=== PATIENT | female | born 1985 | race African-American/Black ===

== ENCOUNTER 2017-03-08 11:17 | Emergency (ER) | payer SELFPAY ==
[2017-03-08 11:24] VITALS: BP 152/81; PULSE 79; TEMP 98.3; BMI 38.0
--- NOTE | 2017-03-08 12:02 | PDOC ---
History of Present Illness - General Stated Complaint: TOOTHACHE Time Seen by Provider: 03/08/17 11:28 History Source: Patient Exam Limitations: No Limitations - History of Present Illness Initial Comments: 03/08/17 11:58 CHIEF COMPLAINT: Impacted left third she really lower molar HISTORY OF PRESENT ILLNESS: Patient is a 31-year-old female, denies any significant medical history currently on no medication presents for evaluation of impaction to left third posterior lower molar, patient reports piece of food getting stuck under the gumline causing pain. Unable to see dentist. Pain 10 out of 10, denies any foul taste, no fever, no difficulty swallowing, no respiratory difficulty. No Facial edema. 03/08/17 12:12 Timing/Duration: 24 hours Severity: moderate Associated Symptoms: reports: denies symptoms Past History - Past Medical History Allergies/Adverse Reactions: Allergies Allergy/AdvReac Type Severity Reaction Status Date / Time acetaminophen [From Tylenol] Allergy Rash Verified 03/08/17 11:25 ibuprofen [From Motrin] Allergy Rash Verified 03/08/17 11:25 shellfish derived Allergy Verified 03/08/17 11:24 Home Medications: Ambulatory Orders Oxycodone HCl/Acetaminophen [Percocet 5-325 mg Tablet] 1 - 2 tab PO Q4H #20 tablet MDD 10 03/08/17 Penicillin V Potassium [Pen Vee K -] 500 mg PO QID #40 tablet 03/08/17 COPD: No Other medical history: NONE - Surgical History Cholecystectomy: Yes - Immunization History Immunization Up to Date: No - Suicide/Smoking/Psychosocial Hx Smoking History: Current every day smoker Have you smoked in the past 12 months: No Number of Cigarettes Smoked Daily: 10 Information on smoking cessation initiated: No Hx Alcohol Use: Yes (SOCIAL) Drug/Substance Use Hx: No Substance Use Type: None Review of Systems - Review of Systems Constitutional: No: Symptoms Reported HEENTM: Yes: Mouth Pain, Other (impacted left third lower molar). No: Ear Pain , Ear Discharge, Nose Pain, Nose Congestion, Dental Problems, Difficulty Swallowing, Mouth Swelling Respiratory: No: Symptoms reported, Stridor, Wheezing, Productive cough Cardiac (ROS): No: Symptoms Reported ABD/GI: No: Symptoms Reported Integumentary: Yes: Other (no swelling). No: Symptoms Reported, Erythema Neurological: No: Symptoms reported, Paresthesia, Tingling, Tremors Hematologic/Lymphatic: No: Symptoms Reported All Other Systems: Reviewed and Negative *Physical Exam - Vital Signs Last Vital Signs Temp Pulse Resp BP Pulse Ox 98.3 F 79 18 152/81 99 03/08/17 11:20 03/08/17 11:20 03/08/17 11:20 03/08/17 11:20 03/08/17 11:20 - Physical Exam General Appearance: Yes: Appropriately Dressed. No: Apparent Distress HEENT: positive: JENNY, Normal ENT Inspection, Normal Voice, Symmetrical, TMs Normal, Pharynx Normal. negative: Nasal Congestion, Rhinorrhea, Sinus Tenderness, TM Bulging, TM Dull, TM Erythema Neck: positive: Trachea midline. negative: Tender, Lymphadenopathy (R), Lymphadenopathy (L), Tender lateral, Tender midline Respiratory/Chest: positive: Lungs Clear, Normal Breath Sounds. negative: Respiratory Distress, Accessory Muscle Use Cardiovascular: positive: Regular Rhythm, Regular Rate Lymphatic: negative: Adenopathy Integumentary: positive: Normal Color, Dry. negative: Erythema, Swelling, Ecchymosis, Bruising Neurologic: positive: Fully Oriented, Alert, Normal Mood/Affect, Motor Strength 5/5 Medical Decision Making - Medical Decision Making 03/08/17 12:19 A/P: Patient here for evaluation of impacted left third molar, states that he got into it unable to visualize foreign body. Encourage patient to perform warm salt gargles. And Percocet Ordered Patient Reports Taking Percocet in the past without Any Symptoms or reaction. Percocet and penicillin ordered, patient discharged home on the same to follow up with dentist. She verbalized understanding *DC/Admit/Observation/Transfer Diagnosis at time of Disposition: Impacted third molar tooth - Discharge Dispostion Disposition: HOME Condition at time of disposition: Good Admit: No - Prescriptions Prescriptions: Oxycodone HCl/Acetaminophen [Percocet 5-325 mg Tablet] 1 - 2 tab PO Q4H #20 tablet MDD 10 Penicillin V Potassium [Pen Vee K -] 500 mg PO QID #40 tablet - Referrals Referrals: Yolanda Su [Primary Care Provider] - - Patient Instructions Printed Discharge Instructions: DI for Impacted Tooth Additional Instructions: Warm salt water gargles, follow up with dental [facility] If any fever, facial redness, pain swelling return to the ER - Post Discharge Activity
[2017-03-08] MEDS ORDERED: PENICILLIN V POTASSIUM 500 MG TABLET PO ONE (12:07)
== END 2017-03-08 12:38 | disposition home or self-care (01) ==
LOC: JERFT 11:17
DX: K01.1 Impacted teeth (principal); F17.210 Nicotine dependence, cigarettes, uncomplicated
CPT/HCPCS: 99281-25